=== PATIENT | male | born 1965 | race African-American/Black ===

== ENCOUNTER 2024-06-08 16:10 | Inpatient (IN) | payer BC, SELFPAY ==
[2024-06-08 16:37] LABS: Specific Gravity 1.018 (1.005-1.030); Sqamous Epithelial None Seen /HPF (None Seen); Urine Bacteria None Seen /HPF (<20); Urine Bilirubin NEGATIVE (Negative); Urine Blood Trace (Negative); Urine Clarity Clear (Clear); Urine Color Light-Yellow (Yellow); Urine Culture Reflex Order NOT NEEDED; Urine Glucose NEGATIVE (Negative); Urine Ketones NEGATIVE (Negative); Urine Microscopic Reflex YN ORDER UMIC; Urine Mucus Slight /HPF (None Seen); Urine Nitrite NEGATIVE (Negative); Urine Protein 3+ (Negative); Urine RBC <5 /HPF (None Seen); Urine Urobilinogen Normal (Normal); Urine WBC <5 /HPF (<5); Urine Yeast (Budding) Trace /HPF (None Seen); Urine pH 6.5 (5.0-7.0)
[2024-06-08] MEDS ORDERED: LORazepam 2 MG/ML VIAL ONE (16:42)
[2024-06-08] MEDS ORDERED: NA CHLORIDE 0.9% 1,000 ML ONE (16:42)
[2024-06-08 16:43] LABS: Absolute Lymphocytes (CBC) 1.4 K/uL (0.7-4.9); Absolute Monocytes 0.8 K/uL (0.1-1.3); Absolute Neutrophil 5.1 K/uL (1.8-8.0); Basophils % 0.4 % (0-1.3); Eosinophils % 0.4 % (0-4.4); Hemoglobin 12.6 g/dL (13.6-17.9); Lymphocytes % 19.5 % (15.3-44.8); MCH 29.8 pg (27.0-35.0); MCHC 34.1 g/dL (32.0-36.0); MCV 87.2 fL (80-100); MPV 10.2 fL (7.6-11.3); Monocytes % 10.3 % (3.3-12.3); Neutrophils % 69.4 % (41.7-73.7); Platelets 138 thou/uL (152-406); RBC Red Blood Cell Count 4.24 M/uL (4.33-5.43); Red Cell Distribution Width 13.6 % (12.1-15.2)
[2024-06-08 16:51] LABS: Barbiturates NEGATIVE (NEGATIVE); Benzodiazepines NEGATIVE (NEGATIVE); Cocaine NEGATIVE (NEGATIVE); METHAMPHETAM POSITIVE (NEGATIVE); Methadone NEGATIVE (NEGATIVE); Opiates NEGATIVE (NEGATIVE); Phencyclidine NEGATIVE (NEGATIVE); THC Cannibis NEGATIVE (NEGATIVE)
[2024-06-08 16:52] LABS: PT Prothrombin Time 12.1 SECONDS (10.0-13.0); PTT, Activated Partial Thromb 29.2 SECONDS (24.3-36.9); Protime INR 1.06
[2024-06-08 17:03] LABS: ALT/SGPT 63 U/L (16-61); AST/SGOT 39 U/L (15-37); Albumin 3.4 g/dL (3.4-5.0); Albumin/Globulin Ratio 0.9 (1.1-1.8); Alkaline Phosphatase 50 U/L (45-117); Anion Gap 9.2 mEq/L (5.0-15.0); BUN Blood Urea Nitrogen 21 mg/dL (7-18); Bicarbonate 26 mEq/L (21-32); Bilirubin Direct 0.2 mg/dL (0-0.2); Bilirubin Indirect, Calculated 0.6 mg/dL (0.2-0.8); Bilirubin Total 0.8 mg/dL (0.2-1.0); Globulin 3.8 g/dL (2.3-3.5); Glomerular Filtration Rate 70 ml/min (=/>90); Glucose Level 100 mg/dL (74-106); Potassium 3.2 mEq/L (3.5-5.1); Protein, Total 7.2 g/dL (6.4-8.2); Sodium Level 137 mEq/L (136-145)
--- NOTE | 2024-06-08 17:14 | ER ---
Nurse's Notes [facility] Name: Mu Ball Age: 58 yrs Sex: Male : 1965 Arrival Date: 06/08/2024 Time: 16:10 Bed 15 Private MD: Diagnosis: Suicide attempt-ingestion of risperidone, benztropine, and hydroxyzine;Methamphetamine abuse Presentation: 06/08 16:11 Chief complaint: Chief complaint: EMS states: overdose on home meds approx 35 minutes iw PHARMACIST TECHNICIAN, pt reported suicidal ideation , he was found with empty pill bottles, risperidone 1 mg qty 30 , risperidone 3 mg qty 30 , benztropine 1 mg qty 60, hydroxyzine 50 mg qty 30, rx last filled 05-27-24. 16:21 Coronavirus screen: At this time, the client does not indicate any symptoms associated iw with coronavirus-19. Ebola Screen: No symptoms or risks identified at this time. Initial Sepsis Screen: Does the patient meet any 2 criteria? No. Patient's initial sepsis screen is negative. Does the patient have a suspected source of infection? No. Patient's initial sepsis screen is negative. Risk Assessment: Do you want to hurt yourself or someone else? Patient reports desire/thoughts of hurting themselves or someone else. Provider notified. Onset of symptoms was June 08, 2024. 16:21 Method Of Arrival: EMS: [facility] iw 16:21 Acuity: SHANTHI 2 iw Triage Assessment: 16:11 General: Appears uncomfortable, well developed, Behavior is agitated, combative, iw restless. 17:20 Pain: Unable to use pain scale. sleeping, drowsy. kj2 Historical: - Allergies: 18:25 Unable to obtain; jl7 - Home Meds: 18:25 Unable to obtain [Active]; jl7 - PMHx: 17:49 Bipolar disorder; Schizophrenia; sb4 - PSHx: 18:25 Unable to Obtain; jl7 - Immunization history:: Adult Immunizations unknown. - Infectious Disease History:: patient unable to verbalize sleeping at this time. - Social history:: Smoking status: unknown. Screenin:20 Abuse screen: Denies threats or abuse. Denies injuries from another. kj2 18:48 [facility] ED Fall Risk Assessment (Adult) History of falling in the last 3 months, kj2 including since admission No falls in past 3 months (0 pts) Confusion or Disorientation No (0 pts) Intoxicated or Sedated Yes (3 pts) Impaired Gait Yes (1 pt) Mobility Assist Device Used No (0 pt) Altered Elimination Yes (1 pt) Score/Fall Risk Level 3 or more points = High Risk Maintained a safe environment, Hourly rounding (assess needs \T\ fall precautionary measures) done, Utilized family, sitter, or virtual duct layer supervisor as indicated. Nutritional screening: No deficits noted. Tuberculosis screening: No symptoms or risk factors identified. Assessment: 16:30 Reassessment: Reassessment: contacted poison control, recommends to monitor NIGHT MANAGER iw depression, cardiac dysrhythmias, seizure, possible anticholinergic effects, tachycardia, administer benzodiazepines as needed until calm, obtain EKG, tox labs, observation a minimum of 8 hour or until baseline. 17:15 Reassessment: report received from JAMI Fonatna. kj2 17:30 Reassessment: Patient appears in no apparent distress at this time. Patient and/or kj2 family updated on plan of care and expected duration. Pain level reassessed. Patient is alert, oriented x 3, equal unlabored respirations, skin warm/dry/pink. 18:30 Reassessment: Patient appears in no apparent distress at this time. Patient and/or kj2 family updated on plan of care and expected duration. Pain level reassessed. Patient is alert, oriented x 3, equal unlabored respirations, skin warm/dry/pink. 19:30 Reassessment: Patient appears in no apparent distress at this time. Patient and/or kj2 family updated on plan of care and expected duration. Pain level reassessed. Patient is alert, oriented x 3, equal unlabored respirations, skin warm/dry/pink. 20:44 Reassessment: report given to JAMI Koo. kj2 21:25 Reassessment: Patient appears in no apparent distress at this time. Patient and/or kj2 family updated on plan of care and expected duration. Pain level reassessed. Patient is alert, oriented x 3, equal unlabored respirations, skin warm/dry/pink. pt taken to ICU. Vital Signs: 16:30 BP 150 / 78; Pulse 141; Resp 24 S; Pulse Ox 96% on R/A; iw 16:48 BP 165 / 81; Pulse 136; Resp 30 S; Temp 98.9(TE); Pulse Ox 97% on R/A; iw 21:00 BP 191 / 97; Pulse 122; Resp 18; Temp 98; Pulse Ox 97% on R/A; kj2 ED Course: 16:11 Patient arrived in ED. me1 16:11 Arm band placed on. iw 16:12 [facility] sb[facility] 16:12 Bonilla Alexandre MD is Attending Physician. sb4 16:22 Triage completed. iw 16:30 Initial lab(s) drawn, by ED staff, sent to lab. Urine collected: straight cath jl7 specimen, clear, EKG done, by ED staff, reviewed by Filomena Wesley PA-C. Inserted saline lock: 18 gauge in right forearm, using aseptic technique. Blood collected. Flushed with 10 mL NS. 17:13 Edna Vee RN is Primary Nurse. kj2 17:13 Salbador Rogers MD is Hospitalizing Provider. sb4 17:15 Patient has correct armband on for positive identification. Bed in low position. Call kj2 light in reach. Side rails up X2. Provided Education on: reason for in ER. Report received from JAMI Fontana. 18:59 urine incontinence cleaned and male purwick applied. em1 20:45 No provider procedures requiring assistance completed. kj2 21:42 Patient admitted, IV remains in place. kj2 Administered Medications: 16:45 Drug: NS 0.9% IV 1000 ml IV at 1000 ml once; to be given as a bolus over 60 minutes iw Route: IV; Rate: 1000 ml; Site: right forearm; 21:42 Follow up: IV Status: Completed infusion; IV Intake: 1000ml kj2 16:45 Drug: Ativan IVP 2 mg IVP once Route: IVP; Site: right forearm; iw 21:42 Follow up: Response: No adverse reaction kj2 Medication: 20:45 VIS not applicable for this client. kj2 Intake: 21:42 IV: 1000ml; Total: 1000ml. kj2 Outcome: 17:14 Decision to Hospitalize by Provider. sb4 21:41 Admitted to ICU accompanied by nurse, accompanied by tech, via stretcher, room 7, with kj2 chart, Report called to JAMI Reyes 21:41 Condition: stable 21:41 Instructed on the need for admit, 21:43 Patient left the ED. vc1 Signatures: Tanvi Campo, RN RN iw Naeem Luna em1 Addi Lucero RN RN jl7 Oma Herman RN RN vc1 Filomena Wesley, PABrady PABrady sb4 Kelly Gandhi RN RN me1 Edna Vee RN RN kj2 Corrections: (The following items were deleted from the chart) 16:22 16:11 Chief complaint: [facility] 16:32 16:30 Reassessment: [facility] 16:49 16:48 Pulse 136bpm; Resp 30bpm; Spontaneous; Pulse Ox 97% RA; Temp 98.9F Temporal; [facility] 18:41 16:11 Chief complaint: EMS states: overdose on home meds approx 35 minutes PHARMACIST TECHNICIAN, pt iw reported suicidal ideation Chief complaint: EMS states: overdose on home meds approx 35 minutes PHARMACIST TECHNICIAN, pt reported suicidal ideation iw
--- NOTE | 2024-06-08 17:14 | EDPHYS ---
Physician Documentation [facility] Name: Mu Ball Age: 58 yrs Sex: Male : 1965 Arrival Date: 06/08/2024 Time: 16:10 Bed 15 Private MD: ED Physician Bonilla Alexandre HPI: 06/08 17:03 This 58 yrs old Male presents to ER via EMS with complaints of drug overdose, suicidal. sb4 17:03 The patient presents to the emergency department with a history of a suicide gesture, sb4 where the patient took pills/medications. Past psychiatric history: Prior diagnosis: bipolar disorder, schizophrenia, Primary psychiatric physician: the patient's psychiatric physician is not known, it is unknown whether or not the patient has had a prior suicide gesture, it is unknown whether or not the patient has a previous inpatient psychiatric history. patient stated that he wanted to kill himself and admitted to taking an unknown amount of his prescription medications. EMS found all of his prescription bottles empty - risperidone, benztropine, and hydroxyzine. Historical: - Allergies: 18:25 Unable to obtain; jl7 - Home Meds: 18:25 Unable to obtain [Active]; jl7 - PMHx: 17:49 Bipolar disorder; Schizophrenia; sb4 - PSHx: 18:25 Unable to Obtain; jl7 - Immunization history:: Adult Immunizations unknown. - Infectious Disease History:: patient unable to verbalize sleeping at this time. - Social history:: Smoking status: unknown. ROS: 17:03 Unable to obtain ROS due to altered mental status, sb4 Exam: 17:03 Head/Face: Normocephalic, atraumatic. Eyes: Extra-ocular motions intact. Periorbital sb4 areas with no swelling, redness, or edema. ENT: Mucous membranes moist. Skin: Warm, dry with normal turgor. Normal color with no rashes, no lesions, and no evidence of cellulitis. 17:03 Constitutional: The patient appears in no acute distress, alert, awake, 17:03 Cardiovascular: Rate: tachycardic, Rhythm: regular, 17:03 Respiratory: the patient does not display signs of respiratory distress, Respirations: tachypnea, that is mild, 17:03 Psych: Patient having thoughts of suicide. Plan for suicide is overdose with pills Judgement / Insight is impaired. Vital Signs: 16:30 BP 150 / 78; Pulse 141; Resp 24 S; Pulse Ox 96% on R/A; iw 16:48 BP 165 / 81; Pulse 136; Resp 30 S; Temp 98.9(TE); Pulse Ox 97% on R/A; iw 21:00 BP 191 / 97; Pulse 122; Resp 18; Temp 98; Pulse Ox 97% on R/A; kj2 MDM: 16:12 Medical Screening Exam initiated sb4 17:13 Data reviewed: vital signs, nurses notes, EMS record, lab test result(s), EKG, and as a sb4 result, I will admit patient. Consideration of Admission/Observation Patient was admitted/placed on observation. Counseling: I had a detailed discussion with the patient and/or guardian regarding the historical points, exam findings, and any diagnostic results supporting the discharge/admit diagnosis, lab results, radiology results, the need for further work-up and treatment in the hospital. 06/08 16:17 Order name: Acetaminophen; Complete Time: 17:[address] [facility] 06/08 16:17 Order name: Basic Metabolic Panel; Complete Time: 17:07 4 06/08 16:17 Order name: CBC with Diff; Complete Time: 16:45 sb 06/08 16:17 Order name: ETOH Level; Complete Time: 16:[address] [facility] 06/08 16:17 Order name: Hepatic Function; Complete Time: 17:07 sb4 06/08 16:17 Order name: PT-INR; Complete Time: 16:[address] [facility] 06/08 16:17 Order name: Ptt, Activated; Complete Time: 16:[address] [facility] 06/08 16:17 Order name: Salicylate; Complete Time: 17:01 4 06/08 16:17 Order name: Urinalysis w/ reflexes; Complete Time: 16:37 sb4 06/08 16:17 Order name: Urine Drug Screen; Complete Time: 16:52 sb 06/08 19:42 Order name: Lactate w/ 2H reflex if indic. EDMS 06/08 19:42 Order name: Magnesium EDMS 06/08 19:42 Order name: NT PRO-BNP EDMS 06/08 19:42 Order name: Phosphorus EDMS 06/08 19:42 Order name: Protime (+INR) EDMS 06/08 19:42 Order name: PTT, Activated Partial Thromb EDMS 06/08 19:42 Order name: Urinalysis w/ reflexes EDMS 06/08 19:42 Order name: Basic Metabolic Panel EDMS 06/08 19:42 Order name: Basic Metabolic Panel EDMS 06/08 19:42 Order name: CBC with Automated Diff EDMS 06/08 19:42 Order name: CBC with Automated Diff EDMS 06/08 19:42 Order name: Lipid Profile EDMS 06/08 19:42 Order name: Lipid Profile EDMS 06/08 16:17 Order name: EKG; Complete Time: 16:17 sb4 06/08 16:17 Order name: EKG - Nurse/Tech; Complete Time: 16:45 sb4 06/08 16:17 Order name: IV Saline Lock; Complete Time: 16:45 sb4 06/08 16:17 Order name: Labs collected and sent; Complete Time: 16:46 sb4 06/08 16:17 Order name: Suicide Precautions; Complete Time: 16:46 sb4 EC:07 Rate is 135 beats/min. Rhythm is regular, Sinus tachycardia. MN interval is normal at sb4 200 msec. QRS interval is normal at 76 msec. QT interval is normal at 234 msec. No Q waves. T waves are Normal. No ST changes noted. Clinical impression: Sinus tachycardia and No evidence of ischemia. Administered Medications: 16:45 Drug: NS 0.9% IV 1000 ml IV at 1000 ml once; to be given as a bolus over 60 minutes iw Route: IV; Rate: 1000 ml; Site: right forearm; 21:42 Follow up: IV Status: Completed infusion; IV Intake: 1000ml kj2 16:45 Drug: Ativan IVP 2 mg IVP once Route: IVP; Site: right forearm; iw 21:42 Follow up: Response: No adverse reaction kj2 Disposition: 17:14 Chart complete. sb4 19:18 Co-signature as Attending Physician, Bonilla Alexandre MD I reviewed the patient's care rt provided by the Advanced Practice Provider and agree with the diagnosis and treatment plan. Disposition Summary: 06/08/24 17:14 Hospitalization Ordered Notes: Hospitalization Status: Inpatient Admission sb4 Provider: Salbador Rogers sb4 Condition: Fair sb4 Problem: new sb4 Symptoms: are unchanged sb4 Bed/Room Type: Standard sb4 Location: Intensive Care Unit(06/08/24 20:07) vc1 Room Assignment: 1-(06/08/24 20:07) vc1 Diagnosis - Suicide attempt - ingestion of risperidone, benztropine, and hydroxyzine sb4 - Methamphetamine abuse sb4 Forms: - Medication Reconciliation Form sb4 - SBAR form sb4 - Leadership Thank You Letter sb4 Signatures: Dispatcher [employer] EDMS Tanvi Campo, RN RN iw Addi Lucero, RN RN jl7 Oma Herman RN RN vc1 Filomena Wesley PA-C PA-C sb4 Bonilla Alexandre MD MD rt Edna Vee RN RN kj2 Corrections: (The following items were deleted from the chart) 16:17 16:17 ACETAMINOPHEN+C.LAB.BRZ ordered. EDMS EDMS 16:17 16:17 BASIC METABOLIC PANEL+C.LAB.BRZ ordered. EDMS EDMS 16:17 16:17 CBC+H.LAB.BRZ ordered. EDMS EDMS 16:17 16:17 ETHANOL+C.LAB.BRZ ordered. EDMS EDMS 16:17 16:17 HEPATIC FUNCTION+C.LAB.BRZ ordered. EDMS EDMS 16:17 16:17 PROTIME (+INR)+COAG.LAB.BRZ ordered. EDMS EDMS 16:17 16:17 PTT, ACTIVATED+COAG.LAB.BRZ ordered. EDMS EDMS 16:17 16:17 SALICYLATE+C.LAB.BRZ ordered. EDMS EDMS 16:17 16:17 Urinalysis+U.LAB.BRZ ordered. EDMS EDMS 16:17 16:17 URINE DRUG SCREEN+UC.LAB.BRZ ordered. EDMS EDMS 20:07 17:14 Telemetry/MedSurg (Inpatient) sb4 vc1 20:07 17:14 sb4 vc1
[2024-06-08] MEDS ORDERED: ONDANSETRON 4 MG/2 ML VIAL IV PRN (19:39)
--- NOTE | 2024-06-08 19:42 | P.HP ---
Certification for Inpatient Patient admitted to: Observation With expected LOS: <2 Midnights Practitioner: I am a practitioner with admitting privileges, knowledge of patient current condition, hospital course, and medical plan of care. Services: Services provided to patient in accordance with Admission requirements found in Title 42 Section 412.3 of the Code of Federal Regulations Patient History Date of Service: 06/08/24 Reason for admission: drug overdose History of Present Illness: Patient is a 58 year old male who is being admitted after a suicidal attempt by intentional drug overdose. Patient has a history of suicidal attempt. He reportdly took an unknown amount of risperidone, hydroxyzine, and benztropine. Urine toxicology is positive for methamphetamines. Poison control was consulted by ER and recommend at least an 8-hour observation. Physical Examination - Physical Exam General: Confused HEENT: Atraumatic, Normocephalic Respiratory: Clear to auscultation bilaterally, Normal air movement Cardiovascular: No edema, Normal pulses, Regular rate/rhythm, Normal S1 S2 Neurological: Other (somnolent) - Studies Laboratory Data (last 24 hrs) 06/08/24 06/08/24 06/08/24 16:34 16:34 16:34 WBC 7.40 Hgb 12.6 L Hct 37.0 L Plt Count 138 L PT 12.1 INR 1.06 APTT 29.2 Sodium 137 Potassium 3.2 L BUN 21 H Creatinine 1.19 Glucose 100 Total Bilirubin 0.8 AST 39 H ALT 63 H Alkaline Phosphatase 50 Assessment and Plan - Problems (Diagnosis) (1) Drug overdose Current Visit: Yes Status: Acute - Plan Assessment Patient is 64-year -Honduran male with a history of psychiatric disorder. He is being admitted after an intentional drug overdose with risperidone, hydroxyzine and benztropine. Patient was being seen in the ER. Drug overdose Psychiatric history Plan: Will admit under observation with telemetry Supportive care with antiemetics and IV fluid infusion Consult psychiatry Dispo as per psychiatry recommendation - Advance Directives Does patient have a Living Will: No Does patient have a Durable POA for Healthcare: No
[2024-06-08] MEDS: NA CHLORIDE 0.9% 1,000 ML IV SCH (21:58)
[2024-06-08 22:35] LABS: Specific Gravity 1.009 (1.005-1.030); Sqamous Epithelial None Seen /HPF (None Seen); Urine Bacteria None Seen /HPF (<20); Urine Bilirubin NEGATIVE (Negative); Urine Blood Negative (Negative); Urine Clarity Clear (Clear); Urine Color Colorless (Yellow); Urine Culture Reflex Order NOT NEEDED; Urine Glucose NEGATIVE (Negative); Urine Ketones NEGATIVE (Negative); Urine Microscopic Reflex YN ORDER UMIC; Urine Nitrite NEGATIVE (Negative); Urine Protein 1+ (Negative); Urine RBC <5 /HPF (None Seen); Urine Urobilinogen Normal (Normal); Urine WBC <5 /HPF (<5); Urine pH 7.5 (5.0-7.0)
[2024-06-08 22:52] LABS: Phosphorus 3.2 mg/dL (2.5-4.9)
[2024-06-08 22:57] LABS: PT Prothrombin Time 11.9 SECONDS (10.0-13.0); PTT, Activated Partial Thromb 30.7 SECONDS (24.3-36.9); Protime INR 1.05
[2024-06-08] MEDS: HYDRALAZINE HCL 20 MG/ML VIAL IV PRN (23:42)
[2024-06-08] MEDS: KCL 20 MEQ/100 mL IVPB 20 MEQ/100 ML BAG IV SCH (23:42)
[2024-06-09 05:31] LABS: Absolute Lymphocytes (CBC) 0.5 K/uL (0.7-4.9); Absolute Monocytes 0.5 K/uL (0.1-1.3); Absolute Neutrophil 8.7 K/uL (1.8-8.0); Basophils % 0.2 % (0-1.3); Eosinophils % 0.1 % (0-4.4); Hematocrit 39.5 % (39.6-49.0); Hemoglobin 13.1 g/dL (13.6-17.9); Lymphocytes % 5.1 % (15.3-44.8); MCH 29.3 pg (27.0-35.0); MCHC 33.3 g/dL (32.0-36.0); MCV 88.1 fL (80-100); MPV 9.1 fL (7.6-11.3); Monocytes % 5.6 % (3.3-12.3); Platelets 150 thou/uL (152-406); RBC Red Blood Cell Count 4.48 M/uL (4.33-5.43); Red Cell Distribution Width 13.9 % (12.1-15.2)
[2024-06-09 07:00] LABS: Blood Morphology Comment NOT SEEN (NOT SEEN); Platelet Estimate ADEQ; White Blood Cell Scan OK (OK)
[2024-06-09] MEDS: ENOXAPARIN 40 MG/0.4 ML SQ SCH (07:59)
--- NOTE | 2024-06-09 12:03 | EKG ---
Test Date: 2024-06-08 Test Time: 22:55:26 Facilities Supervisor: SALBADOR MEASUREMENT RESULTS: Intervals: Rate: 129 RI: 144 QRSD: 82 QT: 312 QTc: 457 Fowler: P: 76 RI: 144 QRS: 81 T: -13 INTERPRETIVE STATEMENTS: Sinus tachycardia T wave abnormality, consider inferior ischemia Abnormal ECG Compared to ECG 06/08/2024 16:23:51 T-wave abnormality now present Possible ischemia now present Atrial abnormality no longer present Left ventricular hypertrophy no longer present Early repolarization no longer present Electronically Signed On 06-09-24 12:01:38 FRONT END WHEEL LOADER OPERATOR by John Perez
--- NOTE | 2024-06-09 12:05 | EKG ---
Test Date: 2024-06-08 Test Time: 16:23:51 Hoseman: RUDDY MEASUREMENT RESULTS: Intervals: Rate: 135 VA: 200 QRSD: 76 QT: 234 QTc: 351 [place]: P: 81 VA: 200 QRS: 78 T: -69 INTERPRETIVE STATEMENTS: Sinus tachycardia Biatrial enlargement Left ventricular hypertrophy with repolarization abnormality Abnormal ECG No previous ECG available for comparison Electronically Signed On 06-09-24 12:02:55 YARN TEXTURE MACHINE OPERATOR by John Perez
--- NOTE | 2024-06-09 19:14 | RAD REPORT ---
EXAMINATION: Head Brain Wo Cont CLINICAL INDICATION: Male, 58 years old.AMS TECHNIQUE: Axial CT images from the skull base to the vertex without intravenous contrast. Coronal an d sagittal reformatted images were created from the data set. One or more of the following dose reduction techniques were used: Automated exposure control, adjustment of the mA and/or kV according to patient size, and/or iterative reconstruction. Unless otherwise specified, incidental findings do not require dedicated imaging follow-up. [id number]. COMPARISON: No prior exam. FINDINGS: INTRACRANIAL: No acute intracranial hemorrhage. No hydrocephalus. No mass effect or midline shift. Mo derate chronic small vessel ischemic changes.Mild cerebral atrophy. VASCULATURE: No visualized abnormalities in the arteries or dural venous sinuses. SCALP/SKULL: No calvarial fracture identified. No acute soft tissue abnormality. SINUSES: Trace paranasal sinus thickening. No significant mastoid fluid. IMPRESSION: No acute intracranial abnormality.
[2024-06-09] MEDS: SCOPOLAMINE HYDROBROMIDE PATCH TD ONE (20:04)
[2024-06-10] MEDS: LABETALOL 20 MG/4ML SYRINGE IV ONE (03:36)
--- NOTE | 2024-06-10 04:23 | RAD REPORT ---
EXAM: CT Angiography Chest With Intravenous Contrast CLINICAL HISTORY: The patient is 58 years old and is Male; r/o PE TECHNIQUE: Axial computed tomographic angiography images of the chest with intravenous contrast. Sagittal and coronal reformatted images were created and reviewed. This CT exam was performed using one or more of the following dose reduction techniques: automated exposure control, adjustmen t of the mA and/or kV according to patient size, and/or use of iterative reconstruction technique. MIP reconstructed images were created and reviewed. COMPARISON: No relevant prior studies available. FINDINGS: Artifacts: Mild motion artifact. Pulmonary arteries: No PE identified. Aorta: No acute findings. No thoracic aortic aneurysm. Lungs: Bilateral lower lobe dependent atelectasis. No mass. Pleural space: No significant effusion. No pneumothorax. Heart: No cardiomegaly. No significant pericardial effusion. Bones/joints: No acute fracture. No dislocation. Soft tissues: Unremarkable. Lymph nodes: No pathologically enlarged lymph nodes. IMPRESSION: 1. Mild motion artifact. 2. No PE identified. 3. Bilateral lower lobe dependent atelectasis. Electronically signed by: Jennifer Alvarado MD 06/10/2024 04:15 AM [facility] V2 Due to temporary technical issues with the PACS/[employer] reporting system, reports are being sakina d by the in-house radiologist without review as a courtesy to ensure prompt reporting the interpreting radiologist is fully responsible for the content of the report. Transcribed Date/Time: 06/10/2024 4:23 AM
[2024-06-10] MEDS: HYDROCORTISONE SUC 100 MG INJ IV ONE (05:20)
[2024-06-10 05:39] VITALS: BMI 26.9
[2024-06-10 06:00] LABS: Absolute Monocytes 0.6 K/uL (0.1-1.3); Absolute Neutrophil 7.1 K/uL (1.8-8.0); Basophils % 0.2 % (0-1.3); Eosinophils % 0.1 % (0-4.4); Hematocrit 39.4 % (39.6-49.0); Hemoglobin 13.3 g/dL (13.6-17.9); Lymphocytes % 11.8 % (15.3-44.8); MCH 29.6 pg (27.0-35.0); MCHC 33.7 g/dL (32.0-36.0); MCV 87.7 fL (80-100); MPV 10.6 fL (7.6-11.3); Monocytes % 6.9 % (3.3-12.3); Nucleated Red Blood Cells % 0.1 % (0-0); Platelets 135 thou/uL (152-406); Red Cell Distribution Width 14.2 % (12.1-15.2)
[2024-06-10 06:35] LABS: Albumin/Globulin Ratio 0.7 (1.1-1.8); Anion Gap 9.8 mEq/L (5.0-15.0); Bilirubin Total 2.4 mg/dL (0.2-1.0); Globulin 4.1 g/dL (2.3-3.5); Magnesium 2.2 mg/dL (1.6-2.4); Potassium 3.8 mEq/L (3.5-5.1); Protein, Total 7.1 g/dL (6.4-8.2); Thyroid Stimulating Hormone 1.79 uIU/mL (0.358-3.740); Troponin High Sensitivity 17.1 pg/mL (<58.9)
--- NOTE | 2024-06-10 07:55 | RAD REPORT ---
EXAMINATION: ONE VIEW CHEST XR CLINICAL INDICATION: pneumonia TECHNIQUE: Frontal chest projection is submitted. Examination is limited by patient positioning and t echnique. COMPARISON: No prior exam. FINDINGS: Bilateral pulmonary opacities are present, greater on the left, favored to represent infection, parti cularly in the medial left base. Mild interstitial pulmonary edema which is asymmetric would be another possibility. The heart is mildly enlarged. No displaced fractures identified.
--- NOTE | 2024-06-10 12:11 | EKG ---
Test Date: 2024-06-09 Test Time: 23:21:57 Pest Control Service Technician: SUKHDEEP MEASUREMENT RESULTS: Intervals: Rate: 128 WI: 194 QRSD: 88 QT: 310 QTc: 452 Yoder: P: 85 WI: 194 QRS: 78 T: -35 INTERPRETIVE STATEMENTS: Sinus tachycardia Right atrial enlargement Voltage criteria for left ventricular hypertrophy T wave abnormality, consider inferolateral ischemia Abnormal ECG Compared to ECG 06/08/2024 22:55:26 Atrial abnormality now present Left ventricular hypertrophy now present T-wave abnormality still present Possible ischemia still present Electronically Signed On 06-10-24 12:10:30 AIR MOTOR REPAIRER by John Perez
--- NOTE | 2024-06-10 16:34 | RAD REPORT ---
EXAMINATION: MRI BRAIN WITHOUT CONTRAST CLINICAL INDICATION: Confusion/alteration of consciousness TECHNIQUE: Multiplanar multisequence MR im ages of the brain were obtained without intravenous contrast. Unless otherwise specified, incidental findings do not require dedicated imaging follow-up. COMPARISON: June 09, 2024. FINDINGS: Images are degraded by patient motion artifact Mild to moderate abnormal signal within periventricular, deep and subcortical white matter which may indicate ischemic changes secondary to small vessel disease. Diffusion weighted/ADC mapping does not demonstrate evidence of an acute infarction. Ventricles are normal caliber. No extra-axial fluid collection. No fluid within the sinuses/mastoid seen IMPRESSION: No gross acute intracranial abnormality seen
[2024-06-10] MEDS: RISPERIDONE 1 MG TABLET PO SCH (20:04)
[2024-06-10] MEDS: BENZTROPINE 1 MG TAB PO SCH (20:04)
[2024-06-10] MEDS: TRAZODONE 50 MG TABLET PO SCH (20:04)
[2024-06-11] MEDS: HALOPERIDOL LACT 5 MG/ML INJ IV PRN ×2 (00:07→16:21)
[2024-06-11] MEDS: LABETALOL 20 MG/4ML SYRINGE IV ONE (04:10)
[2024-06-11] MEDS: LORazepam 2 MG/ML VIAL IV ONE (04:58)
[2024-06-11] MEDS: LORazepam 2 MG/ML VIAL IV PRN (05:13)
[2024-06-11] MEDS: RISPERIDONE 1 MG TABLET PO SCH (08:40)
[2024-06-11] MEDS: CYANOCOBALAMIN 1000MCG/ML INJ IM ONE (10:51)
[2024-06-11] MEDS: METOPROLOL TAR 50 MG TAB PO ONE (10:52)
[2024-06-11] MEDS: HALOPERIDOL LACT 5 MG/ML INJ ONE (16:12)
[2024-06-11] MEDS ORDERED: DIAZEPAM 10 MG/2 ML INJ SYRINGE IV PRN (16:30)
[2024-06-11] MEDS: METOPROLOL TARTRATE 5 MG/5 ML INJ IV STA (16:30)
[2024-06-11] MEDS: HYDROMORPHONE HCL 0.5 MG/0.5 ML INJ IV ONE (16:39)
--- NOTE | 2024-06-11 16:48 | P.PN ---
Date of Service: 06/10/24 Subjective Date of Service: 06/09/24 Patient is catatonic-not responding; responds to pain Review of Systems is unable to be obtained Physical Examination - Vital Signs Temperature: 98.8 F Blood Pressure: 184/99 Pulse: 80 Respirations: 18 Pulse Ox (%): 97 - Physical Exam General: Unresponsive HEENT: Atraumatic, PERRLA, EOMI Neck: Supple, JVD not distended Respiratory: Clear to auscultation bilaterally, Normal air movement Cardiovascular: Regular rate/rhythm, Normal S1 S2 Gastrointestinal: Normal bowel sounds, Soft and benign, Non-distended, No tenderness Musculoskeletal: No tenderness Integumentary: No rashes Neurological: Sensation intact, Cranial nerves 3-12 intact - Studies Medications List Reviewed: Yes Assessment & Plan - Problems (Diagnosis) (1) Acute psychosis Current Visit: Yes Status: Acute (2) Schizophrenia Current Visit: Yes Status: Acute - Plan PLAN: 1. Resume antipsychotics 2. Getting SW to get family information 3. Patient not responding to us but protecting ariway Discharge Plan: Home Plan to discharge in: Greater than 2 days - Advance Directives Does patient have a Living Will: No Does patient have a Durable POA for Healthcare: No - Code Status/Comfort Care Code Status Assessed: Yes Code Status: Full Code Critical Care: No Time Spent Managing PTS Care (In Minutes): 35
[2024-06-11] MEDS: HYDROXYZINE HCL 10 MG/5 ML SYRUP UD PO SCH (17:00)
[2024-06-11] MEDS: VALPROATE SODIUM INJ 500 MG in NA CHLORIDE 0.9% 100 ML IV SCH (17:45)
[2024-06-11] MEDS ORDERED: RISPERIDONE 3 MG PO SCH (21:00)
[2024-06-11] MEDS: METOPROLOL TAR 50 MG TAB PO SCH (21:00)
[2024-06-12 04:11] VITALS: O2SAT 97
[2024-06-12] MEDS: RISPERIDONE 1 MG TABLET PO SCH (08:53)
[2024-06-12 16:44] VITALS: BP 140/62; TEMP 98.3
[2024-06-12] MEDS: ACETAMINOPHEN 325 MG TABLET PO PRN (17:08)
== END 2024-06-12 16:25 | disposition home or self-care (01) | DRG 918 ==
LOC: ER 16:10 → 3RD-ICU 19:39 → OBSVTOIN 06-10 08:50
PROVIDERS: ADMIT Internal Medicine; ATTEND Hospitalist
DX: T43.592A Poisoning by other antipsychotics and neuroleptics, intentional self-harm, initial encounter (principal); F23 Brief psychotic disorder; F31.9 Bipolar disorder, unspecified; F15.10 Other stimulant abuse, uncomplicated; Z91.51 Personal history of suicidal behavior
CPT/HCPCS: 36415; 70450; 70551; 71045; 71275; 80048; 80053; 80061; 80076; 80143; 80179; 80307; 81001; 82077; 82140; 82607; 83605; 83690; 83735; 83880; 84100; 84145; 84439; 84443; 84484; 85025; 85379; 85610; 85730; 93005; 96361; 96374; 99285; G0378; J0360; J1171; J1630; J1650; J1720; J3420; J3480; J7030; Q9967